=== PATIENT | female | born 1945 | race Caucasian/White ===

== ENCOUNTER → 2016-06-22 17:32 | Outpatient (CLI) | payer MEDICARE ==
[2015-01-07 13:02] VITALS: BMI 28.3
[~2016-06-22 17:32] MED LIST: ALEVE220 MG PO; ELIQUIS2.5 MG PO; MULTIPLE VITAMI1 TA1 PO; PERCOCET 10/3251 TA1 PO; TAPAZOLE 5 MG TA5 MG PO
== END | disposition home or self-care (01) ==
LOC: D.MAMMO 15:30
DX: Z12.31 Encounter for screening mammogram for malignant neoplasm of breast (principal)

== ENCOUNTER 2016-11-23 08:30 | Day surgery (SDC) | payer MEDICARE ==
[~2016-11-23] VITALS: Ht 167.6 cm; Wt 83.9 kg
--- NOTE | ~2016-11-23 | OP ---
PATIENT NAME: LC LAI MEDICAL RECORD: [id number] :43 LOCATION:D.OPS ADMISSION DATE: SURGEON: KAR ARANDA MD DATE OF OPERATION: 11/23/2016 Orthopedic Surgery Operative Note PREOPERATIVE DIAGNOSIS: Painful arthritis of the right hip. POSTOPERATIVE DIAGNOSIS: Painful arthritis of the right hip. PROCEDURE: Right hip injection under fluoroscopy. SURGEON: Kar Aranda MD. ANESTHESIA: General. INTRAOPERATIVE COMPLICATIONS: None. SUMMARY OF PATHOLOGIC FINDINGS: The patient had arthritis consistent with the preoperative diagnosis. OPERATIVE SUMMARY IN DETAIL: After obtaining the appropriate preoperative orthopedic surgery consent as well as anesthetic consultation, evaluation and clearance, the patient was brought to the operating room and placed on the operating table in supine position. After adequate TIVA anesthesia was administered, the patient's right hip was prepped and draped in a routine sterile fashion. An 18-gauge needle was introduced into the hip capsule under fluoroscopy. A small amount of Isovue was utilized to be sure that the needle was in the appropriate position. At this point, 10 cc of 0.25% Marcaine plain and 80 mg Depo-Medrol were injected into the right hip under fluoroscopic guidance. Needle tip was withdrawn. Band-Aid was applied. The patient returned to outpatient in stable condition. TRANSINT:[id number] Voice Confirmation ID: [id number] DOCUMENT ID: [id number] KAR ARANDA MD CC: [id number] DICTATION DATE: 11/26/16820 TIRE GROOVER: 11/26/16 0846 [facility] 11/23/16 [place] [address]
[2016-11-23] MEDS ORDERED: AREDS (09:46)
[2016-11-23] MEDS ORDERED: VITAMIN D31000 UNIT PO (09:47)
[2016-11-23] MEDS ORDERED: CALCIUM 500 +1 EAC3 PO (09:48)
[2016-11-23 09:55] VITALS: BP 142/78; Ht 167.6 cm; Wt 83.9 kg
[2016-11-23 11:41] LABS: HEMATOCRIT 42.8 % (36.0-48.0); HEMOGLOBIN 14.3 g/dL (12-16); MCH 32.4 pg (26.0-34.0); MCHC 33.4 g/dL (31.0-37.0); MCV 97.1 fL (80.0-100.0); MEAN PLATELET VOLUME 10.6 fL (7.4-10.4); RBC 4.41 10x6/uL (4.00-5.40); WBC 8.4 10x3/uL (4.8-10.8)
== END 2016-11-23 13:40 | disposition home or self-care (01) ==
LOC: D.OPS 08:30 → D.PAN 13:50 → D.OPS 15:45 → D.PAN 15:45
PROVIDERS: Anesthesiology
DX: M16.11 Unilateral primary osteoarthritis, right hip (principal); F17.200 Nicotine dependence, unspecified, uncomplicated; I10 Essential (primary) hypertension; E03.9 Hypothyroidism, unspecified; Z01.812 Encounter for preprocedural laboratory examination

== ENCOUNTER → 2016-12-24 19:40 | Outpatient (CLI) | payer MEDICARE ==
[2016-11-23 09:55] VITALS: BMI 29.9
[~2016-12-24 19:40] MED LIST changes: +AREDS; +CALCIUM 500 +1 EAC3 PO; +HYDROCODONE-APA1 TAB PO; +PRESERVISION AR1 CAP PO; +VITAMIN D10000 UNI1 PO; +VITAMIN D31000 UNIT PO
== END | disposition home or self-care (01) ==
LOC: D.LABREF 19:40
DX: M16.11 Unilateral primary osteoarthritis, right hip (principal); Z11.8 Encounter for screening for other infectious and parasitic diseases

== ENCOUNTER 2017-01-13 10:00 | Inpatient (IN) | payer MEDICARE ==
[~2017-01-13] VITALS: Ht 162.6 cm; Wt 87.3 kg
[~2017-01-13 10:00] MED LIST changes: -HYDROCODONE-APA1 TAB PO; -PRESERVISION AR1 CAP PO; -VITAMIN D10000 UNI1 PO
[2017-01-13] MEDS ORDERED: PRESERVISION AR1 CAP PO (10:56)
[2017-01-13] MEDS ORDERED: VITAMIN D10000 UNI1 PO (10:58)
[2017-01-13] MEDS ORDERED: ALEVE220 MG PO (10:58)
[2017-01-13 11:54] LABS: BASOPHILS 0.2 % (0-2); EOSINOPHILS 3.5 % (0-7); HEMATOCRIT 42.7 % (36.0-48.0); HEMOGLOBIN 14.2 g/dL (12-16); IMMATURE GRANULOCYTES 0.1 % (0-5); LYMPHOCYTES 30.8 % (15-50); MCH 32.4 pg (26.0-34.0); MCHC 33.3 g/dL (31.0-37.0); MCV 97.5 fL (80.0-100.0); MEAN PLATELET VOLUME 10.3 fL (7.4-10.4); MONOCYTES 8.9 % (2-11); NEUTROPHILS 56.5 % (40-80); PLATELET COUNT 209 10x3/uL (130-400); RBC 4.38 10x6/uL (4.00-5.40); RDW 13.7 % (11.5-14.5); WBC 8.1 10x3/uL (4.8-10.8)
[2017-01-13 12:03] LABS: CALC OSMOLALITY 272 mosm/kg (275-300); CARBON DIOXIDE 26.7 mmol/L (21.0-32.0); CHLORIDE - SERUM 102 mmol/L (98-107); CREATININE - SERUM 0.6 mg/dL (0.6-1.3); GLUCOSE 114 mg/dL (74-106); POTASSIUM - SERUM 4.1 mmol/L (3.5-5.1); SODIUM 134 mmol/L (136-145); UREA NITROGEN 24 mg/dL (7-18); eGFR NON AFRICAN AMERICAN > 90 mL/min (90-120)
[2017-01-13 12:05] LABS: APTT 32.7 SECONDS (22.8-39.4); INR 0.96 (0.85-1.17); PROTIME 12.6 SECONDS (11.6-15.0)
[2017-01-13 12:23] LABS: AMORPHOUS SEDIMENT <1+ /lpf (NONE SEEN); APPEARANCE HAZY (CLEAR); BACTERIA MODERATE /hpf (NONE SEEN); BILIRUBIN NEGATIVE (NEGATIVE); COLOR DK YELLOW (YELLOW); EPITHELIAL CELLS 0-5 /hpf (0-5); GLUCOSE NEGATIVE (NEGATIVE); KETONE NEGATIVE (NEGATIVE); MUCUS <1+ /lpf (NONE SEEN); NITRITE NEGATIVE (NEGATIVE); PROTEIN NEGATIVE (NEGATIVE); SPECIFIC GRAVITY 1.015 (1.005-1.020); WHITE CELLS - URINE OCC /hpf (0-5)
[2017-01-18] VITALS (12 sets, daily range): BP systolic 108–141; BP diastolic 54–77; Ht 162.6 cm; Wt 87.3 kg
--- NOTE | 2017-01-18 12:25 | NUR ---
RECEIVED TO ROOM 2210 FROM RECOVERY ROOM. VSS. IV TO L FA PATENT. DRESSING TO R HIP C/D/I. ICEPACK IN USE TO R HIP.SCD'S IN USE TO BILAT LEGS. O2 2L NC IN USE. DENIES ANY COMPLAINT OF PAIN AT THIS TIME.
--- NOTE | 2017-01-18 12:40 | NUR ---
COMPLAINING OF ACHING TO R HIP. TORADOL GIVEN SLOW IVP.
--- NOTE | 2017-01-18 14:55 | NUR ---
RESTING QUIETLY WITH EYES CLOSED. RESP EVEN,NONLABORED.
--- NOTE | 2017-01-18 18:21 | NUR ---
COMPLAINING OF PAIN TO R HIP. NORCO 10 MG GIVEN. DENIES ANY FURTHER NEEDS AT THIS TIME.
--- NOTE | 2017-01-18 19:30 | NUR ---
RECIEVED SHIFT REPORT. PT IS LYING IN BED. ALERT AND ORIENTED AND ABLE TO VERBALIZE NEEDS. O2 @ 2 PER NASAL CANNULA. IV IS PATENT AND FLUIDS ARE RUNNING PER ORDER. SCD'S ON. DRESSING TO RIGHT HIP C/D/I. PT STATES PAIN IS 4/10. NO NEEDS ARE VERBALIZED AT THIS TIME. WILL CONTINUE TO MONITOR. SIDE RAILS ARE UP X 2. BED IS IN LOWEST POSITION. BED ALARM IS ON FOR SAFETY. CALL LIGHT IS WITHIN REACH.
--- NOTE | 2017-01-18 21:10 | NUR ---
SHIFT ASSESSMENT COMPLETED. NIGHT MEDS GIVEN WITH NO PROBLEMS. NO NEEDS ARE VOICED. WILL MONITOR. SIDE RAILS X 2. BED LOW. BED ALARM ON. CALL LIGHT IN REACH.
[2017-01-19 04:00] VITALS: BP 90/49
[2017-01-19 05:37] LABS: HEMATOCRIT 34.6 % (36.0-48.0); HEMOGLOBIN 11.2 g/dL (12-16); MCH 31.4 pg (26.0-34.0); MCHC 32.4 g/dL (31.0-37.0); MCV 96.9 fL (80.0-100.0); MEAN PLATELET VOLUME 10.5 fL (7.4-10.4); RBC 3.57 10x6/uL (4.00-5.40); RDW 13.6 % (11.5-14.5); WBC 9.4 10x3/uL (4.8-10.8)
--- NOTE | 2017-01-19 07:45 | NUR ---
PT ASSESSMENT COMPLETE AWAKE AND ALERT ORINETED X 3 LUNGS CLAER BILATERALLY NO DISTRESS NOTED ALL ADLS PER STAFF ASSESSMENT
--- NOTE | 2017-01-19 08:07 | NUR ---
PT SEEN. STATES PAIN CONTROL IS TOLERABLE AT PRESENT. DRESSING TO RIGHT HIP IS CLEAN DRY AND INTACT. ABLE TO MOVE TOES FREELY-PINK AND WARM. BED ALARM TURNED ON FOR SAFETY. CALL LIGHT IN REACH
[2017-01-19 10:18] VITALS: BP 113/46
[2017-01-19 12:17] VITALS: BP 102/46
--- NOTE | 2017-01-19 13:44 | NUR ---
PT HAD PAIN MEDS PER ORDER TO KEEP PAIN MANAGABLE CURRENTLY AT 5 ICE PACK APPLIED TO HIP PER REQUEST. INCENTIVE SPIROMETERY AT BEDSIDE AT ENCOURAGED TO USE 10 X PER HOUR WELL ENCOURAGED TO COUGH
--- NOTE | 2017-01-19 15:12 | NUR ---
PT HAS NO DISTRESS NOTED RESTING IN BED CALL LIGHT IN REACH.
--- NOTE | 2017-01-19 19:40 | NUR ---
RECIEVED SHIFT REPORT. PT IS LYING IN BED. ALERT AND ORIENTED AND ABLE TO VERBALIZE NEEDS. IV IS PATENT AND SALINE LOC AT THIS TIME. PT IS AMBULATORY WITH ASSISTANCE. DRESSING TO RIGHT HIP C/D/I. PT IS AMBULATORY WITH ASSISTANCE. PT STATES PAIN IS 4/10. NO NEEDS ARE VERBALIZED AT THIS TIME. WILL CONTINUE TO MONITOR. SIDE RAILS ARE UP X 2. BED IS IN LOWEST POSITION. BED ALARM IS ON FOR SAFETY. CALL LIGHT IS WITHIN REACH.
[2017-01-19 20:00] VITALS: BP 117/49
--- NOTE | 2017-01-19 22:14 | NUR ---
SHIFT ASSESSMENT COMPLETED. NIGHT MEDS GIVEN WITH NO PROBLEMS. PT C/O PAIN 11/15. ADMINISTERED PRESCRIBED PRN NORCO PER ORDER. DENIES FURTHER NEEDS. WILL MONITOR. SIDE RAILS X 2. BED LOW. BED ALARM ON. CALL LIGHT IN REACH.
[2017-01-20] VITALS: BP 109/39
[2017-01-20 04:00] VITALS: BP 102/38
[2017-01-20 05:57] LABS: HEMOGLOBIN 10.5 g/dL (12-16); MCH 31.8 pg (26.0-34.0); MCHC 32.8 g/dL (31.0-37.0); MEAN PLATELET VOLUME 10.3 fL (7.4-10.4); RBC 3.3 10x6/uL (4.00-5.40); RDW 13.8 % (11.5-14.5); WBC 8.8 10x3/uL (4.8-10.8)
--- NOTE | 2017-01-20 07:35 | NUR ---
ASSESSMENT COMPLETE. MALATHI TO Crow FA PATENT. DRESSING TO R HIP C/D/I. SCD'S IN USE TO BILAT LEGS. BED ALARM IN USE. DENIES ANY NEEDS AT PRESENT.
[2017-01-20 08:09] VITALS: BP 100/49
--- NOTE | 2017-01-20 12:00 | NUR ---
SITTING UP IN CHAIR. DENIES ANY NEEDS OR COMPLAINT OF PAIN AT THIS TIME.
[2017-01-20 12:51] VITALS: BP 111/60
--- NOTE | 2017-01-20 13:41 | NUR ---
KEILACO GIVEN FOR COMPLAINT OF R HIP PAIN. AT BEDSIDE. DENIES ANY FURTHER NEEDS AT THIS TIME.
--- NOTE | 2017-01-20 14:30 | NUR ---
Patient Name: LC LAI Admission Status: Elective Accout number: [id number] Admission Date: 01-18-2017 : 1945 Admission Diagnosis:UNILATERAL PRIMARY OSTEOARTHRITIS, RIGHT HIP Attending: KAR ARANDA Current LOS: 2 Anticipated DC Date: Planned Disposition: Home Primary Insurance: [facility] Discharge Planning Comments: CM met with patient to assess discharge planning needs. Patient lives independently with her in [facility] where she works 4 days a week at [employer]. Patient stated that her plan is to do Out Patient PT at [facility] in [place]. Patient has a ramp to enter in her home and has a walker at home a walk in shower and elevated toilet seat and a shower with Grab Bars. CM will continue to follow and assist with discharge planning needs. PCP: Kristal Calle [facility] Leo () [phone] Science Consultant: Sophie Alford * Is the patient Alert and Oriented? Yes 0 * How many steps to enter\exit or inside your home? ramp 0 * PCP Kristal 0 * [facility] in [facility] 0 * Preadmission Environment Home with Family 0 * ADLs Independent 0 * Equipment Elevated [place] Seat Walker 0 * Other Equipment grab bars walk in shower 0 * List name and contact numbers for known caregivers / representatives who currently or will assist patient after discharge: Leo () [phone] * Community resources currently utilized None 0 * Additional services required to return to the preadmission environment? Yes 0 * Can the patient safely return to the preadmission environment? Yes 0 * Has this patient been hospitalized within the prior 30 days at any hospital? No 0 Grand Total: 0
[2017-01-20 15:36] VITALS: BP 119/44
--- NOTE | 2017-01-20 17:00 | NUR ---
NO CHANGES AT NOTED AT PRESENT.
[2017-01-20 20:00] VITALS: BP 105/41
--- NOTE | 2017-01-20 21:53 | NUR ---
REC'D SITTING UP IN BED. ALERT AND ORIENTED X4. DENIED PAIN AT THIS TIME. NO DISTRESS NOTED. DENIED NEEDS AT THIS TIME. INSTRUCTED TO CALL IF NEEDED ANYTHING. VERBALIZED UNDERSTANDING. BED LOW, LOCKED, CALL LIGHT IN REACH, ALARM ON. WILL CONT TO MONITOR.
[2017-01-21] VITALS: BP 127/51
--- NOTE | 2017-01-21 02:00 | NUR ---
PT IN BED WITH NO NEEDS AT THIS TIME. SIDE RAILS X 2. BED IS LOW. CALL LIGHT IN REACH.
[2017-01-21 04:00] VITALS: BP 118/69
[2017-01-21 08:11] VITALS: BP 118/54
[2017-01-21] MEDS ORDERED: ELIQUIS2.5 MG PO (08:11)
[2017-01-21] MEDS ORDERED: HYDROCODONE-APA1 TAB PO (08:13)
--- NOTE | 2017-01-21 10:09 | NUR ---
Patient discharging home today with her to drive home. Patient is set up with OP PT at [facility] for Wednesday at 2:00. copy of order provided for discharge instructions. CM will continue to follow as needed.
--- NOTE | 2017-01-22 10:54 | OP ---
PATIENT NAME: LC LAI MEDICAL RECORD: [id number] :43 LOCATION:D.MS [facility] ADMISSION DATE:01/18/17 SURGEON: KAR ARANDA MD DATE OF OPERATION: 01/18/2017 PREOPERATIVE DIAGNOSIS: Severe degenerative arthritis of the right hip. POSTOPERATIVE DIAGNOSIS: Severe degenerative arthritis of the right hip. PROCEDURE: Right total hip arthroplasty. SURGEON: Kar Aranda MD ANESTHESIA: General. INTRAOPERATIVE COMPLICATIONS: None. SUMMARY OF PATHOLOGIC FINDINGS: The patient had extensive osteoarthritis with acetabular osteophytes as well as femoral neck osteophytes. IMPLANTS USED: [employer] Anato total hip system with a size 3 Anato stem, standard 36-mm anatomic femoral head, Tritanium hemispherical cup size 52 alpha code D, and polyethylene insert 0-degree 36 mm alpha code D. ESTIMATED BLOOD LOSS: 100 cc. OPERATIVE SUMMARY IN DETAIL: After obtaining the appropriate preoperative orthopedic surgery consent as well as anesthetic consultation, evaluation and clearance, the patient was brought to the operating room and placed on the operating table in supine position. After adequate general laryngeal mask airway was administered, the patient was placed in left lateral decubitus position. All pressure points were well padded to include down leg peroneal pad as well as axillary roll. The patient was held firmly to the operating table using the vacuum pack suction system. Right lower extremity and hip were then prepped and draped in a routine sterile fashion. Curvilinear incision was made over the greater trochanter, taken down to the level of the IT band which was split in line with fibers of the IT band to reveal gluteus medius and minimus attachment. These were reflected anteriorly and saved for later reapproximation. The hip capsule was split in a T-type fashion and saved for later reapproximation. Hip was dislocated. The hip femoral neck cut was made using the Anato cutting guide. The acetabulum was then approached. Serial and sequential labrectomy as well as multiple osteophyte removal was then followed by serial and sequential reaming to a size 51, size [address] cup was [address] into [address]. Although good capture was achieved, I felt like a screw augmentation was necessary, 2 screws were placed, resulting in very rigid fixation. The polyethylene liner was snapped into place and checked. It was a very good fit. Attention was then returned to the proximal femur. Serial and sequential reaming and broaching were done for the size 3 Anato stem. The size 3 Anato stem was put into place. Trials were carried out with the head. It was felt standard was the most appropriate for leg length. The standard head was tamped into place, reduced and taken through range of motion and found to be stable in all planes. Intraoperative radiographs showed good position and placement of all components with good leg length retention. Wound was copiously irrigated at this multiple points. Hip capsule was closed with #2 Ethibond followed by #5 Ethibond reapproximation of the gluteus medius and minimus transosseously to the OPERATIVE REPORT [id number] LC LAI greater trochanter. IT band was closed with #2 Ethibond. This was followed by #1 Vicryl, 2-0 Vicryl and skin candace. Sterile dressings were applied. The patient was awakened and taken to the recovery room in stable condition. All final needle and sponge counts were correct. TRANSINT:[id number] Voice Confirmation ID: [id number] DOCUMENT ID: [id number] ROSI MORALES, KAR [place] at 1054 CC: [id number] DICTATION DATE: 01/18/17 1201 PROJECT MANAGER FINANCE: 01/18/17 1214 [facility] 01/21/17 [id number] [place] [address]
== END 2017-01-21 12:00 | disposition home or self-care (01) | DRG 470 ==
LOC: D.SDCHOLD 10:00 → D.MS 01-18 06:11 → D.SDCHOLD 01-18 09:00 → D.MS 01-18 12:20
PROVIDERS: ADMIT Orthopaedic Surgery
PROC: 0SR90JZ Replacement of Right Hip Joint with Synthetic Substitute, Open Approach (ICD-10-PCS; principal; 2017-01-18 09:45)
DX: M16.11 Unilateral primary osteoarthritis, right hip (principal); M25.751 Osteophyte, right hip; E03.9 Hypothyroidism, unspecified; Z95.0 Presence of cardiac pacemaker; Z72.0 Tobacco use

== ENCOUNTER → 2018-02-03 07:50 | Outpatient (CLI) | payer MEDICARE ==
[2017-01-18 12:29] VITALS: BMI 33.0
[~2018-02-03 07:50] MED LIST changes: +HYDROCODONE-APA1 TAB PO; +PRESERVISION AR1 CAP PO; +VITAMIN D10000 UNI1 PO
== END | disposition home or self-care (01) ==
LOC: D.CT 07:50
DX: M54.5 Low back pain (principal)